=== PATIENT | male | born 1970 | race Caucasian/White ===

== ENCOUNTER 2025-07-18 13:17 | Inpatient (IN) | payer SELFPAY ==
[~2025-07-18] VITALS: Ht 175.3 cm; Wt 88.0 kg
[2025-07-18 13:20] VITALS: O2SAT 98
[2025-07-18] MEDS: SODIUM CHLORIDE 0.9% (SEPSIS BOLUS) IV ONE (14:17)
[2025-07-18] MEDS: CEFTRIAXONE 1GM/50ML 50 ML IV ONE (14:17)
[2025-07-18] MEDS: AZITHROMYCIN 500MG/250ML 250 ML IV ONE (14:46)
[2025-07-18 14:56] LABS: HEMATOCRIT. 46.7 % (42.0-52.0); HEMOGLOBIN. 16.0 g/dL (14.0-18.0); MEAN PLATELET VOLUME 9.8 fl (7.4-10.4); PLATELET 128 x1000/uL (130-400); RED BLOOD CELL COUNT 5.02 mill/uL (4.7-6.1); RED CELL DISTRIBUTION WIDTH 12.4 % (11.6-14.6)
[2025-07-18 15:21] LABS: CREATININE 1.2 mg/dL (0.6-1.3); UREA NITROGEN BLOOD 15 mg/dL (9-23)
[2025-07-18 15:22] LABS: TROPONIN I HIGH SENSITIVITY 4 ng/L (3.0-53)
[2025-07-18 15:23] LABS: ASPARTATE AMINOTRANSFERASE 81 IU/L (<34); BILIRUBIN DIRECT 0.3 mg/dL (<=3.0)
[2025-07-18 15:24] LABS: BILIRUBIN TOTAL 0.9 mg/dL (0.1-1.0); PROTEIN TOTAL 7.3 g/dL (6.0-8.3)
[2025-07-18] MEDS ORDERED: ACETAMINOPHEN 650MG SUPP PR PRN ×2 (16:00)
[2025-07-18] MEDS ORDERED: IPRATROPIUM/ALBUTEROL 0.5-3(2.5)MG/3ML NEB HHN PRN (16:00)
[2025-07-18] MEDS ORDERED: CLONIDINE 0.1MG TABLET PO PRN (16:00)
[2025-07-18] MEDS ORDERED: MAGNESIUM/ALUMINUM HYDROXIDE/SIMETHICONE 30ML UDC PO PRN (16:00)
[2025-07-18] MEDS ORDERED: ONDANSETRON HCL 4MG/2ML INJ IV PRN (16:00)
[2025-07-18 16:21] LABS: BAND% 2.0 % (1.0-6.0); EOSINOPHILS % MANUAL 1.0 % (0.0-5.0); LYMPHOCYTES % MANUAL 3.0 % (20.0-50.0); MONOCYTES % MANUAL 11.0 % (2.0-8.0); NEUTROPHILS % MANUAL 83.0 % (45.0-75.0)
[2025-07-18 16:22] LABS: PLATELET ESTIMATE DECREASED
[2025-07-18 16:44] LABS: *AMPHETAMINES SCREEN URINE NEGATIVE (NEGATIVE); *BARBITURATES SCREEN URINE NEGATIVE (NEGATIVE); *BENZODIAZEPINES SCREEN URINE NEGATIVE (NEGATIVE); *COCAINE SCREEN URINE NEGATIVE (NEGATIVE); CANNABINOID URINE SCREEN NEGATIVE (NEGATIVE); ECSTASY MDMA SCREEN URINE NEGATIVE (NEGATIVE); METHADONE URINE SCREEN NEGATIVE (NEGATIVE); OPIATES URINE SCREEN NEGATIVE (NEGATIVE); PHENCYCLIDINE URINE SCREEN NEGATIVE (NEGATIVE)
[2025-07-18 16:55] LABS: CLARITY URINE CLEAR (CLEAR); COLOR URINE YELLOW (YELLOW); GLUCOSE URINE NEGATIVE (NEGATIVE); KETONES URINE TRACE (NEGATIVE); LEUKOCYTE ESTERASE URINE NEGATIVE (NEGATIVE); NITRITE URINE NEGATIVE (NEGATIVE); OCCULT BLOOD URINE NEGATIVE (NEGATIVE); PH URINE 7.5 (4.5-8.0); PROTEIN URINE TRACE (NEGATIVE); SPECIFIC GRAVITY URINE 1.014 (1.005-1.030); UROBILINOGEN URINE 1.0 E.U./dL (0.2-1.0)
[2025-07-18 17:08] LABS: INR 1.0
[2025-07-18 17:08] LABS: BACTERIA URINE NONE SEEN; RBC URINE NONE SEEN /hpf (0-2); WBC URINE NONE SEEN /hpf (0-2)
[2025-07-18] MEDS ORDERED: SODIUM CHLORIDE 0.9% 1,000 ML IV ONE (19:30)
[2025-07-18 20:00] VITALS: BP 134/84; PULSE 89; RESP 18; TEMP 37.7; O2SAT 96
[2025-07-18 21:55] VITALS: BP 134/84; PULSE 89; RESP 18; TEMP 37.7524
[2025-07-19] VITALS: BP 131/93; PULSE 80; RESP 20; TEMP 37.3; O2SAT 98
[2025-07-19 00:49] LABS: TROPONIN I HIGH SENSITIVITY 7 ng/L (3.0-53)
[2025-07-19 04:00] VITALS: BP 134/92; PULSE 78; RESP 20; TEMP 37.1; O2SAT 98
[2025-07-19] MEDS: MULTIVITAMINS,THER W-MINERALS TABLET PO SCH (08:26)
[2025-07-19 13:23] LABS: HEMATOCRIT. 47.0 % (42.0-52.0); HEMOGLOBIN. 16.0 g/dL (14.0-18.0); MEAN PLATELET VOLUME 9.2 fl (7.4-10.4); PLATELET 119 x1000/uL (130-400); RED BLOOD CELL COUNT 5.15 mill/uL (4.7-6.1); RED CELL DISTRIBUTION WIDTH 12.1 % (11.6-14.6)
[2025-07-19 13:56] LABS: TROPONIN I HIGH SENSITIVITY 5 ng/L (3.0-53)
[2025-07-19 13:58] LABS: CREATININE 1.0 mg/dL (0.6-1.3)
[2025-07-19 13:59] LABS: UREA NITROGEN BLOOD 16 mg/dL (9-23)
[2025-07-19] MEDS: AZITHROMYCIN 500MG/250ML 250 ML IV SCH (14:00)
[2025-07-19 14:01] LABS: PHOSPHORUS 2.9 mg/dL (2.5-4.9); T4 FREE 1.20 ng/dL (0.89-1.76)
[2025-07-19 15:50] LABS: BAND% 3.0 % (1.0-6.0); LYMPHOCYTES % MANUAL 27.0 % (20.0-50.0); MONOCYTES % MANUAL 17.0 % (2.0-8.0); NEUTROPHILS % MANUAL 53.0 % (45.0-75.0); PLATELET ESTIMATE NORMAL
== END 2025-07-19 15:13 | disposition left against medical advice (07) | DRG 720 ==
LOC: ER 13:17 → 8WST 15:41 → EDBEDREQ 15:43 → ENRESERV 19:06
PROVIDERS: ADMIT Student in an Organized Health Care Education/Training Program; ATTEND Student in an Organized Health Care Education/Training Program
DX: A41.89 Other specified sepsis (principal); E87.20 Acidosis, unspecified; Z53.29 Procedure and treatment not carried out because of patient's decision for other reasons; U07.1 COVID-19; E86.0 Dehydration; Z78.9 Other specified health status
CPT/HCPCS: 36415; 71045; 80048; 80076; 80305; 81003; 82040; 82550; 83605; 83735; 83880; 84100; 84145; 84439; 84443; 84484; 85025; 87426; 99291; J0456; J0696; J7030